=== PATIENT | female | born 1950 | race Caucasian/White ===

== ENCOUNTER 2020-01-02 07:00 | Day surgery (SDC) | payer MEDICARE, BC ==
[2020-01-02] MEDS ORDERED: Sodium Chloride 0.9% 1,000 ML IV SCH (07:30)
[2020-01-02] MEDS ORDERED: Propofol 200 MG/20 ML SDV ONE ×2 (07:48→08:36)
[2020-01-02] MEDS ORDERED: Midazolam 1 MG/ML 2 ML SDV ONE (07:48)
[2020-01-02] MEDS ORDERED: fentaNYL 100 MCG/2 ML SDV ONE (07:48)
[2020-01-02 10:42] VITALS: BP 102/63; PULSE 81
--- NOTE | 2020-01-02 14:40 | PROC ---
DATE OF PROCEDURE: 01/02/2020 SURGEON: Boris Salinas MD INDICATION: Kristie is a 69-year-old female, who comes in for a screening colonoscopy. The risks and benefits were explained for a colonoscopy and was taken to the OR. PROCEDURE IN DETAIL: Anesthesia was given by the nurse shore man. During the procedure, we used 2 mg of Versed, 2 mcg of fentanyl, and 400 mg of propofol. With a gloved finger, the rectum was examined and tube was placed in the rectum and advanced under direct vision. We did get to the cecum with some difficulty at the last part using external pressure to get into the cecum. Upon retraction of the tube, noted no lesions or ulceration, no abnormality until we got to 16 cm, noted two polyps. Pictures were taken of this and biopsies were done. The remainder of the colon was unremarkable. The tube was removed. The patient tolerated the procedure well. PREOPERATIVE DIAGNOSIS: Screening colonoscopy for polyps. POSTOPERATIVE DIAGNOSIS: Two polyps noted at 16 cm. Biopsy reports are pending. Routine screening should be done for this lady. Boris Salinas MD /[id number]
== END 2020-01-02 10:57 | disposition home or self-care (01) ==
LOC: JP.SDS 07:00
PROVIDERS: ATTEND Internal Medicine
DX: Z12.11 Encounter for screening for malignant neoplasm of colon (principal); D12.7 Benign neoplasm of rectosigmoid junction; I10 Essential (primary) hypertension; F17.200 Nicotine dependence, unspecified, uncomplicated
CPT/HCPCS: 45380; J2250; J2704; J3010; J7030; 88305

== ENCOUNTER 2022-08-09 06:25 | Day surgery (SDC) | payer MEDICARE, BC ==
[2022-08-09] MEDS: Sodium Chloride 0.9% 1,000 ML IV SCH (06:56)
[2022-08-09] MEDS ORDERED: Propofol 200 MG/20 ML SDV ONE ×2 (07:20→08:00)
[2022-08-09] MEDS ORDERED: Midazolam 1 MG/ML 2 ML SDV ONE (07:20)
[2022-08-09] MEDS ORDERED: fentaNYL 100 MCG/2 ML SDV ONE (07:20)
[2022-08-09 09:36] VITALS: BP 100/57; PULSE 78
[2022-08-11] MEDS ORDERED: TRIAMCINOLONE ACETONIDE 40 MG INJECT ONE ×2 (15:30)
[2022-08-11] MEDS ORDERED: BUPIVACAINE 0.5% INJECT ONE ×2 (15:30)
== END 2022-08-09 10:09 | disposition home or self-care (01) ==
LOC: JP.SDS 06:25
PROVIDERS: ATTEND Internal Medicine
DX: Z12.11 Encounter for screening for malignant neoplasm of colon (principal); F17.200 Nicotine dependence, unspecified, uncomplicated; Z86.010 Personal history of colon polyps
CPT/HCPCS: J2250; J2704; J3010; J7030

== ENCOUNTER 2025-08-13 15:20 | Observation (INO) | payer MEDICARE, BC ==
[2025-08-13 16:30] LABS: BASOPHILS ABSOLUTE AUTO 0.05 K/uL (0.00-0.10); BASOPHILS PERCENT AUTO 0.5 % (0.1-1.3); EOSINOPHILS ABSOLUTE AUTO 0.64 K/uL (0.00-0.40); EOSINOPHILS PERCENT AUTO 5.9 % (0.0-5.4); IMMATURE GRAN ABSOLUTE AUTO 0.04 K/uL (0.00-0.23); IMMATURE GRAN PERCENT AUTO 0.4 % (0.0-0.7); LYMPHOCYTES ABSOLUTE AUTO 0.49 K/uL (0.8-3.3); LYMPHOCYTES PERCENT AUTO 4.5 % (11.4-47.7); MONOCYTES ABSOLUTE AUTO 0.90 K/uL (0.20-0.90); MONOCYTES PERCENT AUTO 8.3 % (3.3-12.6); NEUTROPHILS ABSOLUTE AUTO 8.78 K/uL (1.0-7.6); NEUTROPHILS PERCENT AUTO 80.4 % (40.0-78.1); PLATELET COUNT,PLT 255 K/uL (130-375); RED BLOOD CELL COUNT 4.92 M/uL (3.77-5.24); WHITE BLOOD CELL COUNT,WBC 10.9 K/uL (3.2-11.0)
[2025-08-13 16:53] LABS: ALANINE AMINOTRANSFERASE,ALT 33 U/L (12-78); ASPARTATE AMNIOTRANSFERASE,AST 19 U/L (15-37); BILIRUBIN TOTAL 0.3 mg/dL (0.2-1.0); BLOOD UREA NITROGEN,BUN 22 mg/dL (7-18); CARBON DIOXIDE,CO2 28 mmol/L (21-32); CHLORIDE,CL 105 mmol/L (100-108); CREATININE 0.9 mg/dL (0.6-1.0); EST CRCL DRUG DOSING (CG) 52.52 mL/min; ESTIMATED GFR 67 mL/min (>60); GLUCOSE RANDOM 127 mg/dL (74-106); POTASSIUM,K 4.1 mmol/L (3.6-5.2); PROTEIN TOTAL,TP 7.2 g/dL (6.4-8.2); SODIUM,NA 140 mmol/L (140-148); TROPONIN I HIGH SENSITIVITY 6.5 pg/mL (<=60.3)
[2025-08-13 16:55] LABS: A/G RATIO 0.9 (1.2-2.2)
[2025-08-13 16:57] LABS: LACTIC ACID 0.7 mmol/L (0.4-2.0)
[2025-08-13] MEDS: guaiFENesin 100 MG/5 ML Soln 10 ML UD Cup PO SCH (16:58)
[2025-08-13] MEDS: methylPREDNISolone Sodium Succinate 125 MG/2 ML SDV IM ONE (16:58)
[2025-08-13] MEDS: Albuterol 0.083% 2.5 MG/3 ML Neb Soln NEB PRN (16:59)
[2025-08-13 19:37] LABS: APPEARANCE,URINE SLIGHTLY CLOUDY (CLEAR); GLUCOSE,URINE NEGATIVE (NEGATIVE); OCCULT BLOOD,URINE MODERATE (NEGATIVE)
[2025-08-13 19:45] LABS: SQUAMOUS EPITHELIAL CELLS,UR FEW /HPF; UROTHELIAL CELLS,URINE NOT SEEN /HPF
[2025-08-14] MEDS: Calcium Carbonate/Vitamin D3 1500 MG-400 Units Tab PO SCH (08:21)
[2025-08-14] MEDS: Multivitamins with Iron/Calcium/Folic Acid/Minerals Tab PO SCH (08:21)
[2025-08-14] MEDS: Sodium Chloride 0.9% 10 ML Syringe FLUSH PRN (10:23)
[2025-08-14] MEDS: Iopamidol 755 Mg/ML 100 ML Bottle IV SCH (10:23)
[2025-08-14] MEDS: Metoprolol Succinate 50 MG Tab.ER*POM PO SCH (10:30)
[2025-08-14] MEDS: TIOTROPIUM BROMIDE INH SCH (10:38)
[2025-08-14] MEDS ORDERED: Sodium Chloride 0.9% 10 ML Syringe IV PRN (10:44)
[2025-08-14 14:58] VITALS: BP 105/89; PULSE 87
[2025-08-14] MEDS ORDERED: SIMVASTATIN 20 MG PO SCH (21:00)
== END 2025-08-14 14:55 | disposition home or self-care (01) ==
LOC: JP.ED 15:20 → JP.MS 21:20
PROVIDERS: ADMIT Internal Medicine; ATTEND Internal Medicine
DX: J44.1 Chronic obstructive pulmonary disease with (acute) exacerbation (principal); C50.919 Malignant neoplasm of unspecified site of unspecified female breast; R09.02 Hypoxemia; E78.00 Pure hypercholesterolemia, unspecified; I10 Essential (primary) hypertension; F17.210 Nicotine dependence, cigarettes, uncomplicated; Z88.1 Allergy status to other antibiotic agents; Z88.8 Allergy status to other drugs, medicaments and biological substances; Z79.82 Long term (current) use of aspirin; Z79.899 Other long term (current) drug therapy; Z20.822 Contact with and (suspected) exposure to COVID-19
CPT/HCPCS: 36415; 71046; 71275; 80053; 81001; 83605; 84484; 85025; 85379; 87086; 87088; 87186; 87428; 93005; 94640; 96372; 99285; A9270; G0378; J2919; J7512; Q9967

== ENCOUNTER 2025-09-08 08:32 | Day surgery (SDC) | payer MEDICARE, BC ==
[~2025-09-08 08:32] MED LIST: Midazolam 1 MG/ML 2 ML SDV ONE; Propofol 200 MG/20 ML SDV ONE; fentaNYL 100 MCG/2 ML SDV ONE
[2025-09-08] MEDS: Lactated Ringers 1,000 ML IV SCH (09:16)
[2025-09-08] MEDS: Albuterol 0.083% 2.5 MG/3 ML Neb Soln NEB ONE (09:59)
[2025-09-08] MEDS: Lidocaine 1% with EPINEPHrine 1:100,000 50 ML MDV ONE (11:06)
[2025-09-08 12:01] VITALS: BP 126/50; PULSE 74
== END 2025-09-08 12:25 | disposition home or self-care (01) ==
LOC: JP.SDS 08:32
PROVIDERS: ATTEND Surgery
DX: C50.912 Malignant neoplasm of unspecified site of left female breast (principal); Z88.6 Allergy status to analgesic agent; Z88.8 Allergy status to other drugs, medicaments and biological substances
CPT/HCPCS: 36561; 71045; 76000; 94640; A9270; C1788; C1894; J0665; J0690; J1642; J2250; J2704; J3010; J7120; 00532-QZ